=== PATIENT | male | born 1975 | race Hispanic/Latino ===

== ENCOUNTER 2022-12-09 08:39 | Observation (INO) | payer SELFPAY ==
[2022-12-09] VITALS (10 sets, daily range): BP systolic 126–149; BP diastolic 69–91
[~2022-12-09] VITALS: Ht 152.4 cm; Wt 81.0 kg
[~2022-12-09 08:39] MED LIST: BACTRIM DS1 TAB PO; NORCO1 TA1 PO
--- NOTE | 2022-12-09 08:40 | NUR ---
PATIENT ARRIVED TO ER VIA POV. PATIENT WHEELED TO ROOM BY ER STAFF. PATIENT AWAKE, ALERT AND STABLE. NO DISTRESS NOTED. PHYSICIAN AT BEDSIDE. WILL CONTINUE TO MONITOR.
[2022-12-09 09:03] LABS: BASO% 0.2 % (0-3); HEMOGLOBIN 15.4 g/dl (14.0-18.0); IMMATURE GRANULOCYTES 0.1 % (0.0-5.0); LYMPH% 7.3 % (15-41); MEAN CELL VOLUME 84.4 fL CALC (80.0-100.0); MEAN CORPUSCULAR HGB 27.9 pG CALC (26.0-32.0); MONO% 2.8 % (2-13); NEUT# 13.47 thou/uL (1.82-7.42); NEUT% 89.6 % (42-76); RED BLOOD COUNT 5.52 mill/uL (4.70-6.10); RED CELL DISTRI WIDTH 13.5 % (11.5-15.5)
[2022-12-09 09:13] LABS: BUN 17 mg/dL (9-20); BUN/CREATININE RATIO 21 (12-20 (CALC)); CARBON DIOXIDE 24 mmol/l (22-30); CHLORIDE 99 mmol/l (95-108); CREATININE 0.8 mg/dL (0.7-1.3); GFR FOR AFR.AMER. > 60 ML/MIN (>=60 (CALC)); GFR OTHER RACES > 60 ML/MIN (>=60 (CALC)); LIPASE 61 u/l (23-300); POTASSIUM 3.9 mmol/l (3.5-5.1); SGOT/AST 43 u/l (17-59); TOTAL PROTEIN 7.3 g/dL (6.3-8.2)
[2022-12-09 09:14] LABS: ALBUMIN 4.4 g/dL (3.2-5.0); ALKALINE PHOSPHATASE 88 u/l (38-126); ANION GAP 15 (6-22 (CALC)); BILIRUBIN, TOTAL 3.3 mg/dL (0.2-1.3); SODIUM 134 mmol/l (137-146)
[2022-12-09 09:25] LABS: HEMATOCRIT 46.6 % (39.0-50.0)
--- NOTE | 2022-12-09 09:30 | NUR ---
PATIENT AWAKE, ALERT AND STABLE. NO DISTRESS NOTED. PATIENT IS RESTING IN BED. WILL CONTINUE TO MONITOR.
--- NOTE | 2022-12-09 09:35 | NUR ---
PATIENT AWAKE AND STABLE. NO DISTRESS NOTED. WILL CONTINUE TO MONITOR.
--- NOTE | 2022-12-09 11:00 | NUR ---
PATIENT AWAKE AND STABLE. NO DISTRESS NOTED. WILL CONTINUE TO MONITOR.
--- NOTE | 2022-12-09 12:35 | NUR ---
NO DISTRESS NOTED. PATIENT DENIES ANY PAIN. PATIENT RESTING IN BED WATCHING TV. WILL CONTINUE TO MONITOR.
--- NOTE | 2022-12-09 13:42 | NUR ---
PATIENT AWAKE, ALERT AND STABLE. NO DISTRESS NOTED. WILL CONTINUE TO MONITOR.
--- NOTE | 2022-12-09 15:00 | NUR ---
PATIENT UP AMBULATING TO RESTROOM. NO DISTRESS NOTED. WILL CONTINUE TO MONITOR.
--- NOTE | 2022-12-09 17:00 | NUR ---
PATIENT AWAKE, ALERT AND STABLE. NO DISTRESS NOTED.
--- NOTE | 2022-12-09 17:05 | NUR ---
REPORT GIVEN TO MED SURG, RN. NURSE TRANSPORTED PATIENT UPSTAIRS VIA WHEELCHAIR.
--- NOTE | 2022-12-09 18:00 | NUR ---
PT ARRIVED TO [facility] VIA WHEEL CHAIR. PT A/OX3 AMBULATORY. VIETNAMESE SPEAKER ONLY. HEART RHYTHM NORM PT STATED HX OF HTN. COULD NOT RECALL NAME OF PROVIDER OR MEDICATION TAKEN FOR HTN. IV SITE NOTED TO LAC 20G.D5NS INFUSING. PT RESPIRATIONS ON ROOM AIR. PT STATED BM THIS MORNING. PT STATES URINATION WITH NO PROBLEM .PT REPORT PER ER NURSE NPO. PT DENIES ADDITIONAL NEEDS AT THE TIME ALL SAFETY PRECAUTIONS IN PLACE WITH CALL LIGHT IN REACH.
--- NOTE | 2022-12-09 19:05 | NUR ---
PT LACTIC ACID CRITICAL REPORT CALLED TO MD KIRAN 2.3. TO PUT IN ORDERS FOR PT PT TO BE KEPT NPO.
--- NOTE | 2022-12-09 19:39 | NUR ---
MD KIRAN CALLED FLOOR TO GIVE VERBAL TELEPHONE ORDERS.WRITTEN IN CHART SENT TO SAVANNA .NIGHT NURSE INFORMED.
--- NOTE | 2022-12-09 20:01 | NUR ---
BEDSIDE REPORT RECIEVED. PT A/OX3. RESPIRATIONS EVEN AND UNLABOROED ON ROOM AIR. LUNG SOUNDS CLEAR. HEART RHYTHM NORMAL. BOWEL SOUNDS ACTIVE. #20G LAC INFUSING WITH IVF PER ORDER. SKIN INTACT. #20G LAC INFUSING WITH IVF PER ORDER. PT C/O OF 5/10 RIGHT ABD PAIN. PT TO BE MEDICATED PER EMAR. PT ORIENTED TO ROOM AND CALL LIGHT SYSTEM. INFORMED OF NPO STATUS AT 0000, VERBALIZED UNDERSTANDING. ALL SAFETY PRECAUTIONS ARE IN PLACE WITH CALL LIGHT IN REACH.
[2022-12-10] VITALS (10 sets, daily range): BP systolic 90–117; BP diastolic 50–86
--- NOTE | 2022-12-10 00:44 | NUR ---
PT SLEEPING IN SEMI FOWLERS POSITION. RESPIRATIONS EVEN AND UNLABORED ON ROOM AIR. IVF INFUSING PER ORDER. SCHEDULED MEDICATIONS ADMINISTERED. NO S/S OF DISTRESS. ALL SAFETY PRECAUTIONS ARE IN PLACE WITH CALL LIGHT IN REACH
--- NOTE | 2022-12-10 04:10 | NUR ---
PT SLEEPING IN SEMI FOWLERS POSITION. RESPIRATIONS EVEN AND UNLABORED ON ROOM AIR. IVF INFUSING PER ORDER. NO S/S OF DISTRESS. ALL SAFETY PRECAUTIONS ARE IN PLACE WITH CALL LIGHT IN REACH.
--- NOTE | 2022-12-10 07:20 | NUR ---
PERFROMED BEDSIDE REPORT WITH HYDRAULIC PRESS TENDER NURSE. PT NOTED LAYING SEMI FOWLERS IN BED, ON PHONE. PT IS AZER[place] SPEAKING ONLY. HYDRAULIC PRESS TENDER NURSE ABLE TO TRANSLATE AND COMMUNICATE ON PLAN OF CARE FOR TODAY. PT DENIES ANY PAIN AT THIS TIME. CALL LIGHT WITHIN REACH AND SAFETY PRECAUTIONS PLACE.
--- NOTE | 2022-12-10 13:32 | NUR ---
PT TAKEN DOWN TO OR VIA STR OR NURSE GIVEN REPORT ON PT
--- NOTE | 2022-12-10 20:10 | NUR ---
RECEIVED REPORT FROM DAYSHIFT NURSE. PT IS SITTING UP IN BED WITH SLIGHT PAIN IN ABDOMEN. INCISION SIGHT APPEAR HEALTHY. SAFETY PRECAUTIONS IN PLACE AND CALLIGHT WITHIN REACH.
--- NOTE | 2022-12-11 00:20 | NUR ---
PT IS SLEEPING IN BED. PAIN MEDICATION ADMINISTERED.SAFETY PRECAUTIONS IN PLACE AND CALL LIGHT WITHIN REACH.
--- NOTE | 2022-12-11 04:20 | NUR ---
PT IS SLEEPING BED AND HAS NO COMPLAINTS AT THIS TIME. NO PAIN OR DISTRESS ATH THIS MOMENT. SAFETY PRECAUTONS IN PLACE AND CALL LIGHT WITHIN REACH.
[2022-12-11 05:18] LABS: BASO% 0.2 % (0-3); EOS% 0.1 % (0-8); IMMATURE GRANULOCYTES 0.2 % (0.0-5.0); LYMPH% 18.7 % (15-41); MEAN CELL VOLUME 86.7 fL CALC (80.0-100.0); MEAN CORPUSCULAR HGB 28.2 pG CALC (26.0-32.0); MEAN CORPUSCULAR HGB CONC 32.5 g/dL CAL (32.0-36.0); MONO% 5.8 % (2-13); NEUT# 9.96 thou/uL (1.82-7.42); RED BLOOD COUNT 4.29 mill/uL (4.70-6.10); RED CELL DISTRI WIDTH 14.5 % (11.5-15.5)
[2022-12-11 05:25] LABS: ALKALINE PHOSPHATASE 62 u/l (38-126); BUN 14 mg/dL (9-20); BUN/CREATININE RATIO 16 (12-20 (CALC)); CREATININE 0.9 mg/dL (0.7-1.3); GFR FOR AFR.AMER. > 60 ML/MIN (>=60 (CALC)); GFR OTHER RACES > 60 ML/MIN (>=60 (CALC)); POTASSIUM 3.6 mmol/l (3.5-5.1); SGOT/AST 59 u/l (17-59)
[2022-12-11 05:26] LABS: ALBUMIN 2.8 g/dL (3.2-5.0); ANION GAP 12 (6-22 (CALC)); BILIRUBIN, TOTAL 6.2 mg/dL (0.2-1.3); CARBON DIOXIDE 18 mmol/l (22-30); CHLORIDE 115 mmol/l (95-108); SODIUM 141 mmol/l (137-146); TOTAL PROTEIN 5.5 g/dL (6.3-8.2)
[2022-12-11 05:28] LABS: HEMATOCRIT 37.2 % (39.0-50.0); HEMOGLOBIN 12.1 g/dl (14.0-18.0)
--- NOTE | 2022-12-11 07:25 | NUR ---
PERFROMED BEDSIDE REPORT WITH NIGHTSHIFT NURSE. PT NOTED STANDING UP, AMBULATING THROUGH OUT RM. GAIT STEADY. PT IS CROATIAN SPEAKING ONLY. NIGHT NURSE ABLE TO TRANSLATE. PT COMPLAINS OF MINOR PAIN IN ABD. EDUCATED PT ON MED SCHEDULE AND PAIN MANAGEMENT. PT IS A/OX3, RM AIR, BOWEL SOUNDS ARE ACTIVE. ENCOURAGED PT TO CONTINUE AMBULATING TODAY AND IMPORTANCE OF AMBULATING. PT HAS DEDRICK DRAIN NOTED IN RUQ WITH LIGHT RED BLOODY OUTPUT NOTED. EDUCATED PT ON PLAN OF CARE FOR TODAY. CALL LIGHT WITHIN REACH AND SAFETY PRECAUTIONS IN PLACE.
[2022-12-11 07:55] VITALS: BP 108/66
--- NOTE | 2022-12-11 12:00 | NUR ---
PT SITTING UP ON SIDE OF BED EATING LUNCH AT THIS TIME. PAIN MEDICATION ADMINISTERED PER EMAR. NO S/S OF DISTRESS. CALL LIGHT WITHIN REACH AND SAFETY PRECAUTIONS IN PLACE.
[2022-12-11 12:14] VITALS: BP 138/79
[2022-12-11 15:47] VITALS: BP 121/75
--- NOTE | 2022-12-11 19:00 | NUR ---
REPORT RECEIVED FROM Hadley URIAS LPN, CARE OF PT ASSUMED AT THIS TIME.
[2022-12-11 19:09] VITALS: BP 121/77
[2022-12-11 19:27] VITALS: BP 121/77
--- NOTE | 2022-12-11 20:15 | NUR ---
30ML THIN SANGUINOUS DRAINANGE EMPTIED FROM RUQ DEDRICK DRAIN. DRAIN RE-ENGAGED TO BULB SUCTION. PT REPORTS PAIN & HESITANCY WITH COUGH. EDUCATION PROVIDED ON PULMONARY HYGIENE WITH ATENTION TO C/D/B EXERCISES, INCENTIVE SPIROMETRY AND SPLINTING. PT VERBALIZES UNDERSTANDING AND PROVIDES RETURN DEMONSTRATION.
--- NOTE | 2022-12-12 | NUR ---
PT RESTING IN BED, AWAKE, DENIES CURRENT NEEDS, CALL DIAZ WITHIN REACH, AGREES TO CALL PRN.
--- NOTE | 2022-12-12 03:10 | NUR ---
RECEIVED BEDSIDE REPORT WITH NIGHTSHIFT NURSE. PT NOTED LAYING SUPINE IN BED RESTING COMFORTABLE AT THIS TIME. NO S/S OF DISTRESS. CALL LIGHT WITHIN REACH AND SAFETY PRECAUTIONS IN PLACE.
[2022-12-12 04:29] VITALS: BP 136/86
[2022-12-12 05:45] LABS: HEMATOCRIT 37.4 % (39.0-50.0); HEMOGLOBIN 12.7 g/dl (14.0-18.0); MEAN CELL VOLUME 84.4 fL CALC (80.0-100.0); MEAN CORPUSCULAR HGB 28.7 pG CALC (26.0-32.0); RED BLOOD COUNT 4.43 mill/uL (4.70-6.10); RED CELL DISTRI WIDTH 14.3 % (11.5-15.5)
[2022-12-12 05:58] LABS: TOTAL PROTEIN 5.9 g/dL (6.3-8.2)
[2022-12-12 06:00] VITALS: BP 136/86
[2022-12-12 06:08] LABS: BILIRUBIN, TOTAL 3.5 mg/dL (0.2-1.3)
[2022-12-12 06:15] VITALS: BP 138/87
--- NOTE | 2022-12-12 08:00 | NUR ---
PT SITTING UP ON SIDE OF BED EATING BREAKFAST. TOLERATING MEAL WELL. PT DENIES ANY PAIN AT THIS TIME. EDUCATED PT ON PLAN OF CARE, DISCHARGE AND MED SCHEDULE TODAY. CALL LIGHT WITHIN REACH AND SAFETY ORECAUTIONS IN PLACE.
[2022-12-12 10:35] VITALS: BP 133/80
[2022-12-12] MEDS ORDERED: PERCOCET 5/325M1 TAB PO (10:50)
--- NOTE | 2022-12-12 11:12 | NUR ---
DEDRICK DRAIN REMOVED PER PHYSICIANS ORDER WITH 25CC OUTPUT IN BULB. PT TOLERATED WELL. DRESSED WITH GAUZE AND TEGADERM. PT SITTING UP IN CHAIR AT THIS TIME. NO S/S OF DISTRESS. CALL LIGHT WITHIN REACH AND SAFETY PRECAUTIONS IN PLACE.
--- NOTE | 2022-12-12 11:44 | NUR ---
USED LANGUAGE LINE TO TRANSLATE: ID NUMBER [id number] Discharge instructions given. Patient verbalizes understanding of same. Discharged in stable condition via Wheelchair to Home with staff. All belongings sent with pt. IV site discontinued, cath intact. No edema , no redness, voices no discomfort.
== END 2022-12-12 12:00 | disposition home or self-care (01) | DRG 419 ==
LOC: ED 08:39 → ED-I 09:02 → ED 09:02 → ED-I 15:30 → ED 15:47 → MS2 15:48
PROVIDERS: Family Medicine; ADMIT Surgery; ATTEND Surgery
PROC: 0FT44ZZ Resection of Gallbladder, Percutaneous Endoscopic Approach (ICD-10-PCS; principal; 2022-12-10)
DX: K80.00 Calculus of gallbladder with acute cholecystitis without obstruction (principal); K82.8 Other specified diseases of gallbladder; E66.9 Obesity, unspecified; I10 Essential (primary) hypertension; E80.6 Other disorders of bilirubin metabolism
CPT/HCPCS: G0378; J0131; J1610; Q9966